=== PATIENT | male | born 1975 | race Caucasian/White ===

== ENCOUNTER 2025-07-16 23:06 | Emergency (ER) | payer OTHER ==
[2025-07-16 23:26] LABS: #Basophils Less than 0.03 10x3/uL (0.0-0.2); #Eosinophils 0.03 10x3/uL (0.0-0.5); #Monocytes 0.97 10x3/uL (0.0-1.1); #Neutrophils 6.76 10x3/uL (1.5-8.4); %Basophils 0.2 % (0.0-2.0); %Eosinophils 0.3 % (0.0-6.0); %Lymphocytes 17.7 % (18.0-47.0); %Monocytes 10.2 % (0.0-10.0); %Neutrophils 71.2 % (40.0-75.0); Hematocrit 41.9 % (38.8-50.0); Hemoglobin 14.8 g/dL (13.5-17.5); Mean Corpuscular Hemoglobin 31.2 pg (27.0-33.0); Mean Corpuscular Volume 88.4 fL (81.2-95.1); Platelet Count 290 10x3/uL (150-450); Red Blood Cell (RBC) Count 4.74 10x6/uL (4.32-5.72); White Blood Cell (WBC) Count 9.50 10x3/uL (3.5-10.5)
[2025-07-16 23:38] LABS: ALT (SGPT) 12 U/L (Less than 45); AST (SGOT) 19 U/L (11-34); Albumin 4.2 g/dL (3.1-4.5); Alkaline Phosphatase 113 U/L (40-110); Anion Gap 14 mmol/L (10-20); BUN (Urea Nitrogen) 32 mg/dL (8.4-25.7); Bilirubin, Total 1.1 mg/dL (0.3-1.2); Calc. Creatinine Clearance 0 mL/min (70-130); Calcium 9.1 mg/dL (7.8-10.44); Carbon Dioxide 22 mmol/L (22-29); Chloride 111 mmol/L (98-107); Globulin 2.7 g/dL (2.4-3.5); Glucose 114 mg/dL (70-105); Potassium 4.7 mmol/L (3.5-5.1); Sodium 142 mmol/L (136-145)
[2025-07-16 23:44] LABS: Troponin I Less than 0.010 ng/mL (< 0.028)
[2025-07-17] MEDS ORDERED: cefTRIAXone (ROCEPHIN) 1 GM VIAL ONE (01:26)
== END 2025-07-17 01:57 | disposition home or self-care (01) ==
LOC: EEVIPCON 23:06 → CSHERS 23:06
DX: J15.9 Unspecified bacterial pneumonia (principal); I25.10 Atherosclerotic heart disease of native coronary artery without angina pectoris; I10 Essential (primary) hypertension; Z95.0 Presence of cardiac pacemaker
CPT/HCPCS: 36415; 71045; 80053; 83605; 83880; 84484; 85025; 87428; 93005; 94760; 96374; J0696